=== PATIENT | female | born 1985 | race Caucasian/White ===

== ENCOUNTER 2019-07-30 20:55 | Inpatient (IN) | payer MEDICARE ==
[~2019-07-30] VITALS: Ht 162.6 cm; Wt 66.2 kg
[~2019-07-30 20:55] MED LIST: AMER30O RC; LIDO700A47 TP; NO HOME MEDS; PANT40TA4 PO
[2019-07-30] MEDS ORDERED: magnesium hydroxide 30ml (MOM) UD suspension PO PRN (22:35)
[2019-07-30] MEDS ORDERED: benzocaine/benzethon 30gm ointment RC PRN (22:35)
[2019-07-30] MEDS ORDERED: mag hydrox/Alum hydrox/simeth 30ml oral suspension PO PRN (22:35)
[2019-07-30] MEDS ORDERED: loperamide 2mg capsule PO PRN (22:35)
[2019-07-30 22:48] VITALS: BP 133/97
[2019-07-30] MEDS ORDERED: Melatonin 3mg tablet PO PRN (22:55)
[2019-07-30] MEDS ORDERED: LORazepam 1 MG tablet PO PRN ×2 (23:00)
[2019-07-30] MEDS ORDERED: diphenhydrAMINE 25mg capsule PO PRN (23:00)
[2019-07-30] MEDS: LIDOcaine 5% patch TP SCH (23:00)
[2019-07-30] MEDS ORDERED: haloperidol 5mg tablet PO PRN (23:00)
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
--- NOTE | 2019-07-31 05:25 | NUR ---
LOS FOR SA.
[2019-07-31 07:43] LABS: CHOLESTEROL 165 MG/DL (0-200); HDL CHOLESTEROL 33 MG/DL (35-60); LDL CHOLESTEROL 110 MG/DL (50-100); TRIGLYCERIDES 85 MG/DL (20-135)
[2019-07-31 07:47] LABS: HEMOGLOBIN A1C 5.7 % (4.5-6.2)
[2019-07-31 08:00] VITALS: BP 104/64
[2019-07-31] MEDS: pantoprazole 40mg Tablet.DR PO SCH (08:21)
[2019-07-31] MEDS: LIDOcaine 5% patch TP SCH (08:22)
--- NOTE | 2019-07-31 14:09 | NUR ---
Unlisted diet for fruits and vegetables only. Spoke with RN discussing minimum requirements for protein and other macro/micronutrients must be sent however can send double portions of fruits and vegetables, d/w dietary. Addendum: 07/31/19 at [address] Amended: Links added.
[2019-07-31] MEDS: ibuprofen tablet 400 MG TABLET PO PRN ×2 (15:01→23:11)
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
[2019-07-31 19:54] VITALS: BP 122/83
[2019-07-31] MEDS ORDERED: cyclobenzaprine 10mg tablet PO PRN (21:25)
[2019-07-31] MEDS: Melatonin 3mg tablet PO PRN (23:10)
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
[2019-08-01 07:40] VITALS: BP 128/85
[2019-08-01] MEDS: LIDOcaine 5% patch TP SCH (07:42)
[2019-08-01] MEDS: pantoprazole 40mg Tablet.DR PO SCH (07:42)
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
[2019-08-01 20:00] VITALS: BP 118/74
[2019-08-01] MEDS: Melatonin 3mg tablet PO PRN (22:10)
[2019-08-01] MEDS: ibuprofen tablet 400 MG TABLET PO PRN (22:10)
[2019-08-01] MEDS ORDERED: LIDOcaine 5% patch TP SCH (22:12)
[2019-08-01] MEDS ORDERED: LIDOcaine 5% patch TP ONE (22:15)
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
[2019-08-02] MEDS: pantoprazole 40mg Tablet.DR PO SCH (08:00)
[2019-08-02 08:09] VITALS: BP 114/90
--- NOTE | 2019-08-02 10:00 | NUR ---
Group Therapy: Process Group This Clinicians goals for this process group were as follows: (1) Ask scaling questions about Patients current anxiety, depression, and irritability symptoms as a check-in. (2) Share psychoeducation about emotional escalation as it relates to stress and negative symptoms, Fight, flight, freeze. (3) Share psychoeducation on principles of mindfulness and emotional relaxation techniques that Patients may utilize to reduce the acuity of unwanted emotional escalation. (4) Provide psychoeducation on the STOPP acronym: Stop, Take a Breath, Observe the situation, Put things into perspective, and, Practice what works. (5) Process Clients thoughts and reflections on this topic within the group milieu. Patient identified experiencing the following levels of anxiety, depression, and anger/irritability while present in the group milieu. Anxiety: 02/26 Depression: 02/26 Anger/irritability: 02/26 Patient presented as open and cooperative within the group milieu. Patient was dressed in [facility] scrubs. Patient presented as nonobtrusive within the group milieu. Patient presented as verbally open and cooperative during the discussion on the STOPP method of emotional deescalation. She reported that she often tried to rub her fingers together, during moments of emotional escalation to refocus her mind off of unwanted thoughts that sometimes lead her to experience episodes of maladaptive emotional escalation. During the discussion on the physiology of the "Fight, flight, or freeze," process, Patient reported that she typically would aggressively confront people and situations in a manner that she believed fell in line with the fight response to stress-filled situations. Sudarshan Becerra MA, SALON ASSISTANT Addendum: 08/02/19 at 1139 by Sudarshan Becerra Amended: Links added.
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
[2019-08-02] MEDS: Melatonin 3mg tablet PO PRN (21:27)
[2019-08-02] MEDS: ibuprofen tablet 400 MG TABLET PO PRN (21:27)
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
[2019-08-03] MEDS: pantoprazole 40mg Tablet.DR PO SCH (07:18)
[2019-08-03 07:25] VITALS: BP 128/77
--- NOTE | 2019-08-03 10:00 | NUR ---
Group Therapy: Process Group This Clinicians goals for this process group were as follows: (1) Ask scaling questions about Patients current anxiety, depression, and irritability symptoms as a check-in. (2) Share psychoeducation about automatic thoughts and cognitive distortions. (3) Share psychoeducation on CBT thought-stopping and, thought-reframing. (4) Discuss strategies for identifying negative, unhelpful, and/or irrational thoughts as quickly as possible to avoid unwanted escalation of mental health symptoms. (5) Process Clients thoughts and reflections on this topic within the group milieu. Patient identified experiencing the following levels of anxiety, depression, and anger/irritability while present in the group milieu. Anxiety: 04/26 Depression: 02/26 Anger/irritability: 02/26 Patient presented as open and cooperative within the group milieu. Patient was dressed in [facility] scrubs. Patient presented as verbally engaged during the discussion on automatic thoughts, cognitive distortions, thought-stopping, and thought-reframing interventions that one could do to reduce unwanted escalation of mental health symptoms. Patient reported that she particularly related to the thinking error of engaging in, "Negative character labeling, i.e., I'm stupid, fat, ugly, etc." She also noted that she sometimes had the tendency to think in, "Absolutes," i.e., [id number], [id number] thinking, which sometimes she acknowledged led her to thinking unhelpful, unbalanced, and/or irrational thoughts at times. Sudarshan Becerra MA, PAU Addendum: 08/03/19 at 1134 by Sudarshan Becerra Amended: Links added.
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
[2019-08-03] MEDS ORDERED: PANT40TA4 PO (12:05)
[2019-08-03] MEDS ORDERED: LIDO700A47 TP (12:05)
--- NOTE | 2019-08-03 14:13 | NUR ---
DISCHARGE NOTE The patient was discharged today at 1413. She left with all belongings, instructions and prescriptions were electronically sent to [facility] [address] for pickup. Denies suicidal thoughts. She is discharging to her home environment with Significant Other who picked her up. She was escorted to the lobby by BILLY Heaton.
== END 2019-08-03 14:13 | disposition home or self-care (01) | DRG 885 ==
LOC: ADULT MH 22:22
PROVIDERS: ADMIT Psychiatry & Neurology Psychiatry; ATTEND Psychiatry & Neurology Psychiatry
DX: F33.1 Major depressive disorder, recurrent, moderate (principal); F19.20 Other psychoactive substance dependence, uncomplicated; F43.12 Post-traumatic stress disorder, chronic; M62.838 Other muscle spasm; M54.9 Dorsalgia, unspecified; Z90.49 Acquired absence of other specified parts of digestive tract
CPT/HCPCS: 36415; 80061; 83036

== ENCOUNTER 2021-12-19 18:46 | Emergency (ER) | payer MEDICARE ==
[~2021-12-19] VITALS: Ht 162.6 cm; Wt 68.2 kg
[~2021-12-19 18:46] MED LIST changes: -AMER30O RC; -NO HOME MEDS; -PANT40TA4 PO; +PANT40TA54 PO
[2021-12-19 19:20] LABS: MEAN CORPUSCULAR VOLUME 88.4 FL (78-98); MEAN PLATELET VOLUME 8.9 FL (7.4-10.4); NEUTROPHILS # (AUTO) 6.1 X10'3 (1.8-7.7); RED CELL DISTRIBUTION WIDTH 13.3 % (11.5-14.5)
[2021-12-19 19:22] LABS: BASOPHILS # (AUTO) 0.1 X10'3 (0-0.2); EOSINOPHILS # (AUTO) 0.1 X10'3 (0-0.9); EOSINOPHILS % (AUTO) 1.1 % (0-6); HEMATOCRIT 40.1 % (35.0-45.0); HEMOGLOBIN 13.5 g/dl (12.0-16.0); LYMPHOCYTES # (AUTO) 2.7 X10'3 (1.1-4.8); LYMPHOCYTES % (AUTO) 26.8 % (21-51); MEAN CORPUSCULAR HEMOGLOBIN 29.7 PG (27.0-31.0); MEAN CORPUSCULAR HGB CONC 33.5 g/dL (33.0-36.5); MONOCYTES % (AUTO) 9.6 % (2-12); NEUTROPHILS % (AUTO) 61.5 % (42-75); PLATELET COUNT 291 X10'3 (140-440); RED BLOOD COUNT 4.54 X10'6 (4.20-5.60)
[2021-12-19 19:35] LABS: ALANINE AMINOTRANSFERASE 24 U/L (12-78); ALBUMIN 4.3 G/DL (3.4-5.0); ALBUMIN/GLOBULIN RATIO 1.2 (1.1-1.5); ALKALINE PHOSPHATASE 58 IU/L (46-116); ANION GAP 6 (8-16); ASPARTATE AMINO TRANSFERASE 16 U/L (10-37); BILIRUBIN,TOTAL 0.2 MG/DL (0.1-1.0); BLOOD UREA NITROGEN 11 MG/DL (7-18); BUN/CREATININE RATIO 11.5 (6.6-38.0); CALCIUM 9.2 MG/DL (8.5-10.1); CHLORIDE 104 MMOL/L (99-107); CREATININE 0.96 MG/DL (0.40-0.90); GLUCOSE 116 MG/DL (70-104); POTASSIUM 3.4 MMOL/L (3.5-5.1); SODIUM 139 MMOL/L (135-145); TOTAL CARBON DIOXIDE 28.6 MMOL/L (24-32); TOTAL PROTEIN 7.8 G/DL (6.4-8.2); eGFR 66 ML/MIN
[2021-12-20 01:07] VITALS: BP 128/84
== END 2021-12-20 01:09 | disposition home or self-care (01) ==
LOC: ER 18:47
DX: E87.6 Hypokalemia (principal); R30.0 Dysuria; R53.1 Weakness; R19.4 Change in bowel habit; Z88.5 Allergy status to narcotic agent; Z88.6 Allergy status to analgesic agent; Z90.49 Acquired absence of other specified parts of digestive tract; Z98.890 Other specified postprocedural states
CPT/HCPCS: 36415; 71045; 80053; 83880; 84484; 85025; 93005; 99285

== ENCOUNTER 2022-11-28 15:54 | Emergency (ER) | payer MEDICAID ==
[~2022-11-28] VITALS: Ht 162.6 cm; Wt 72.7 kg
[2022-11-28] MEDS ORDERED: normal saline 1000ML IV soln IVB ONE ×2 (16:00→16:50)
[2022-11-28 16:31] LABS: BASOPHILS # (AUTO) 0.1 X10'3 (0-0.2); BASOPHILS % (AUTO) 0.6 % (0-1); EOSINOPHILS # (AUTO) 0.1 X10'3 (0-0.9); EOSINOPHILS % (AUTO) 0.7 % (0-6); HEMATOCRIT 40.9 % (35.0-45.0); HEMOGLOBIN 13.4 g/dl (12.0-16.0); LYMPHOCYTES # (AUTO) 1.6 X10'3 (1.1-4.8); LYMPHOCYTES % (AUTO) 12.1 % (21-51); MEAN CORPUSCULAR HEMOGLOBIN 29.3 PG (27.0-31.0); MEAN CORPUSCULAR HGB CONC 32.8 g/dL (33.0-36.5); MEAN CORPUSCULAR VOLUME 89.3 FL (78-98); MEAN PLATELET VOLUME 9.5 FL (7.4-10.4); MONOCYTES % (AUTO) 7.9 % (2-12); NEUTROPHILS # (AUTO) 10.4 X10'3 (1.8-7.7); NEUTROPHILS % (AUTO) 78.7 % (42-75); PLATELET COUNT 286 X10'3 (140-440); RED BLOOD COUNT 4.58 X10'6 (4.20-5.60); RED CELL DISTRIBUTION WIDTH 13.5 % (11.5-14.5); WHITE BLOOD COUNT 13.2 X10'3 (4.5-11.0)
[2022-11-28 16:43] LABS: ALANINE AMINOTRANSFERASE 21 U/L (12-78); ALBUMIN 4.1 G/DL (3.4-5.0); ALBUMIN/GLOBULIN RATIO 1.2 (1.1-1.5); ALKALINE PHOSPHATASE 64 IU/L (46-116); ANION GAP 6 (8-16); ASPARTATE AMINO TRANSFERASE 18 U/L (10-37); BILIRUBIN,TOTAL 0.4 MG/DL (0.1-1.0); BLOOD UREA NITROGEN 11 MG/DL (7-18); BUN/CREATININE RATIO 10.8 (10.0-20.0); CALCIUM 9.3 MG/DL (8.5-10.1); CHLORIDE 106 MMOL/L (99-107); CREATININE 1.02 MG/DL (0.40-0.90); GLUCOSE 90 MG/DL (70-104); POTASSIUM 3.7 MMOL/L (3.5-5.1); SODIUM 137 MMOL/L (135-145); TOTAL CARBON DIOXIDE 25.1 MMOL/L (24-32); TOTAL PROTEIN 7.6 G/DL (6.4-8.2); eCRCL 65 ML/MIN; eGFR 61 ML/MIN
[2022-11-28 16:50] LABS: MAGNESIUM 2.2 MG/DL (1.5-2.4); PRO BRAIN NATRIURETIC PEPTIDE 90 PG/ML (0-125)
[2022-11-28] MEDS ORDERED: ketorolac tromethamine 15mg/ml inj. IV ONE (16:50)
[2022-11-28 17:00] LABS: ETHANOL < 10 MG/DL (<10)
[2022-11-28 17:06] LABS: BILIRUBIN,URINE NEGATIVE (Neg); CLARITY,URINE SLIGHTLY CLOUDY (Clear); COLOR,URINE YELLOW (Yellow); GLUCOSE, URINE NEGATIVE (Neg); KETONES,URINE NEGATIVE (Neg); LEUKOCYTE ESTERASE ,URINE NEGATIVE (Neg); NITRITES, URINE NEGATIVE (Neg); OCCULT BLOOD,URINE NEGATIVE (Neg); PROTEIN,URINE NEGATIVE (Neg); UROBILINOGEN,URINE 0.2 E.U/dL (0.2-1.0)
[2022-11-28 17:10] LABS: UA COLLECTION TYPE CLN CATCH MIDSTREAM
[2022-11-28] MEDS ORDERED: NAPR-56 PO (17:21)
[2022-11-28 17:22] LABS: URINE AMPHETAMINE SCREEN NEGATIVE (Neg); URINE BARBITUATE SCREEN NEGATIVE (Neg); URINE BENZODIAZEPINES SCREEN NEGATIVE (Neg); URINE CANNABINOID SCREEN POSITIVE (Neg); URINE COCAINE SCREEN NEGATIVE (Neg); URINE METHADONE SCREEN NEGATIVE (Neg); URINE OPIATE SCREEN NEGATIVE (Neg); URINE PHENCYCLIDINE SCREEN NEGATIVE (Neg)
[2022-11-28 17:27] LABS: BACTERIA,URINE FEW /HPF (Neg); RBC,URINE 0-2 /HPF (0-2); SQUAMOUS EPITHELIAL CELL,UR FEW /LPF (FEW); WBC,URINE 0-4 /HPF (0-4)
[2022-11-28 18:15] VITALS: BP 128/69; PULSE 62; RESP 15; TEMP 97.9; O2SAT 98
== END 2022-11-28 18:05 | disposition home or self-care (01) ==
LOC: ER 15:54
DX: R07.9 Chest pain, unspecified (principal); M79.602 Pain in left arm; M54.9 Dorsalgia, unspecified
CPT/HCPCS: 36415; 71045; 80053; 80305; 80320; 81001; 83735; 83880; 84484; 85025; 93005; 96361; 96374; 99285; J1885; J7030

== ENCOUNTER 2022-12-21 18:33 | Emergency (ER) | payer MEDICAID ==
[~2022-12-21] VITALS: Ht 162.6 cm; Wt 71.9 kg
[~2022-12-21 18:33] MED LIST changes: +NAPR-56 PO
[2022-12-21 18:35] VITALS: TEMP 97.3
[2022-12-21 19:10] LABS: BASOPHILS # (AUTO) 0.2 X10'3 (0-0.2); BASOPHILS % (AUTO) 1.4 % (0-1); EOSINOPHILS # (AUTO) 0.2 X10'3 (0-0.9); EOSINOPHILS % (AUTO) 1.2 % (0-6); HEMATOCRIT 38.5 % (35.0-45.0); LYMPHOCYTES # (AUTO) 1.5 X10'3 (1.1-4.8); LYMPHOCYTES % (AUTO) 9.8 % (21-51); MEAN CORPUSCULAR HEMOGLOBIN 29.7 PG (27.0-31.0); MEAN CORPUSCULAR HGB CONC 33.7 g/dL (33.0-36.5); MEAN CORPUSCULAR VOLUME 88.2 FL (78-98); MEAN PLATELET VOLUME 9.2 FL (7.4-10.4); MONOCYTES # (AUTO) 0.9 X10'3 (0-0.9); NEUTROPHILS # (AUTO) 12.6 X10'3 (1.8-7.7); NEUTROPHILS % (AUTO) 81.6 % (42-75); PLATELET COUNT 304 X10'3 (140-440); RED BLOOD COUNT 4.37 X10'6 (4.20-5.60); RED CELL DISTRIBUTION WIDTH 13.2 % (11.5-14.5); WHITE BLOOD COUNT 15.4 X10'3 (4.5-11.0)
[2022-12-21 19:15] LABS: ALANINE AMINOTRANSFERASE 16 U/L (12-78); ALBUMIN 4.1 G/DL (3.4-5.0); ALBUMIN/GLOBULIN RATIO 1.2 (1.1-1.5); ALKALINE PHOSPHATASE 74 IU/L (46-116); ANION GAP 13 (8-16); ASPARTATE AMINO TRANSFERASE 23 U/L (10-37); BILIRUBIN,TOTAL 0.2 MG/DL (0.1-1.0); BLOOD UREA NITROGEN 12 MG/DL (7-18); BUN/CREATININE RATIO 10.3 (10.0-20.0); CALCIUM 9.7 MG/DL (8.5-10.1); CHLORIDE 103 MMOL/L (99-107); CREATININE 1.17 MG/DL (0.40-0.90); GLUCOSE 97 MG/DL (70-104); LIPASE 173 U/L (16-77); POTASSIUM 3.8 MMOL/L (3.5-5.1); SODIUM 139 MMOL/L (135-145); TOTAL CARBON DIOXIDE 23.5 MMOL/L (24-32); TOTAL PROTEIN 7.4 G/DL (6.4-8.2); eCRCL 57 ML/MIN; eGFR 52 ML/MIN
[2022-12-21] MEDS ORDERED: ondansetron/PF 4mg/2ml inj IV ONE (19:25)
[2022-12-21] MEDS ORDERED: normal saline 1000ml 1,000 ML IV ONE (19:25)
[2022-12-21] MEDS ORDERED: morphine 4 MG/ML inj SYRINge IV ONE (19:25)
[2022-12-21 19:38] LABS: TOTAL CELLS COUNTED 100
[2022-12-21 19:39] LABS: PLATELET ESTIMATE NORMAL
--- NOTE | 2022-12-21 19:43 | NUR ---
Waiting on HCG results before doing CT
[2022-12-21] MEDS ORDERED: ketorolac trometh. 30mg/ml inj. IV ONE (20:20)
[2022-12-21 20:28] VITALS: RESP 20
[2022-12-21 21:28] LABS: BETA HCG,QUANTITATIVE < 1.0 mIU/ml
[2022-12-22 00:42] LABS: URINE HCG NEGATIVE (NEG)
[2022-12-22 01:18] LABS: BILIRUBIN,URINE NEGATIVE (Neg); CLARITY,URINE CLEAR (Clear); COLOR,URINE YELLOW (Yellow); GLUCOSE, URINE NEGATIVE (Neg); KETONES,URINE NEGATIVE (Neg); LEUKOCYTE ESTERASE ,URINE NEGATIVE (Neg); NITRITES, URINE NEGATIVE (Neg); OCCULT BLOOD,URINE MODERATE (Neg); PROTEIN,URINE NEGATIVE (Neg); UROBILINOGEN,URINE 0.2 E.U/dL (0.2-1.0)
[2022-12-22 01:26] LABS: UA COLLECTION TYPE NON-SPECIFIED
[2022-12-22 01:32] VITALS: BP 128/93; PULSE 74; O2SAT 100
--- NOTE | 2022-12-22 01:33 | NUR ---
PT UP AND AMBULATORY TO BR INDEPENTLY C STEADY GAIT
[2022-12-22] MEDS ORDERED: ondansetron/PF 4mg/2ml inj IV ONE (01:50)
[2022-12-22] MEDS ORDERED: proCHLORperazine 10 MG/2 ml inj IV ONE (01:50)
[2022-12-22] MEDS ORDERED: HYDROcodone/acetaminophen 5mg/325mg tablet PO ONE (01:50)
[2022-12-22] MEDS ORDERED: tamsulosin 0.4mg capsule PO ONE (01:50)
[2022-12-22 01:55] LABS: WBC,URINE 0-4 /HPF (0-4)
[2022-12-22 01:56] LABS: BACTERIA,URINE FEW /HPF (Neg)
[2022-12-22] MEDS ORDERED: FLO0.4C PO (01:56)
[2022-12-22] MEDS ORDERED: HYDR-3965 PO (01:56)
[2022-12-22] MEDS ORDERED: ONDA8TAB13 PO (01:56)
[2022-12-22 01:57] LABS: CAL OXALATE CRYSTALS 2+ /HPF (NEGATIVE); MUCUS STRANDS MANY /LPF (Neg); SQUAMOUS EPITHELIAL CELL,UR MODERATE /LPF (FEW)
== END 2022-12-22 01:35 | disposition home or self-care (01) ==
LOC: ER 18:34
DX: N20.0 Calculus of kidney (principal); F32.9 Major depressive disorder, single episode, unspecified; Z90.49 Acquired absence of other specified parts of digestive tract; Z88.2 Allergy status to sulfonamides; Z88.8 Allergy status to other drugs, medicaments and biological substances; Z88.6 Allergy status to analgesic agent; Z79.899 Other long term (current) drug therapy
CPT/HCPCS: 36415; 74176; 80053; 81001; 81025; 83690; 84702; 85007; 85025; 96361; 96374; 96375; 96376; 99285; J0780; J1885; J2270; J2405; J7030